=== PATIENT | female | born 1955 | race Caucasian/White ===

== ENCOUNTER 2023-08-30 10:18 | Observation (INO) ==
[~2023-08-30 10:18] MED LIST: Naloxone 0.4 mg VIAL 0.4 mg/ml 1 ml VIAL IV PRN; Ondansetron 4 mg VIAL 2 MG/ML 2 ml VIAL IV PRN; fentaNYL 100 mcg/2 ml 50 MCG/ML VIAL IV PRN
[2023-08-30] MEDS ORDERED: Chlorhexidine MOUTHWASH 0.12% 15 ML UDC ONE (10:26)
[2023-08-30] MEDS ORDERED: Midazolam 2 mg/2 ml VIAL 1 mg/ml 2 ml VIAL (2 mg) ONE (10:40)
[2023-08-30] MEDS ORDERED: Lidocaine 2% PF 5 ML VIAL ONE (10:40)
[2023-08-30] MEDS ORDERED: fentaNYL 250 mcg/5 ml 50 MCG/ML 5 ml VIAL (250 MCG) ONE (10:40)
[2023-08-30] MEDS ORDERED: Propofol 10 MG/ML 20 ML BTL ONE (10:40)
[2023-08-30] MEDS ORDERED: Rocuronium 50 mg VIAL 10 mg/ml 5 ml VIAL (50 mg) ONE ×2 (10:41→12:41)
[2023-08-30] MEDS ORDERED: ceFAZolin 2 GM PREMIX 2 GM/50 ML BAG ONE (10:54)
[2023-08-30] MEDS: Lactated Ringers 1000 ml BAG 1,000 ML IV SCH ×2 (11:12→17:17)
[2023-08-30] MEDS: Buffered Lidocaine 1% SYRIN 1 ml INTRADERM ONE (11:12)
[2023-08-30] MEDS ORDERED: Lidocaine 1% w EPI 1:100,000 MDV 20 ML VIAL ONE (12:33)
[2023-08-30] MEDS ORDERED: ceFAZolin VIAL VIAL ONE (12:33)
[2023-08-30] MEDS ORDERED: Thrombin 5,000 UNITS(BOVINE) for Ultrasound Guided Pseudoaneursym ONE (12:33)
[2023-08-30] MEDS ORDERED: Gelfoam Sponge SIZE 100 SPONGE ONE (12:33)
[2023-08-30 13:21] LABS: Rapid COVID-19 Molecular Undetected (Undetected)
[2023-08-30] MEDS ORDERED: Ondansetron 4 mg VIAL 2 MG/ML 2 ml VIAL ONE (13:31)
[2023-08-30] MEDS ORDERED: Dexamethasone IV 4 MG/ML VIAL 1 ml VIAL ONE (13:31)
[2023-08-30] MEDS ORDERED: Phenylephrine IV 10 MG/ML 1 ml VIAL ONE (13:31)
[2023-08-30] MEDS ORDERED: Calcium Carb (TUMS) 500 mg CHEW TAB PO PRN (14:41)
[2023-08-30] MEDS ORDERED: Benzocaine/Menthol LOZ MT PRN (14:41)
[2023-08-30] MEDS ORDERED: Phenol 1.4% Throat Spray BTL MT PRN (14:41)
[2023-08-30] MEDS ORDERED: Dextran 70/Hypromellose Tears Eye Drops 15 ml BTL (for Artificials Tears) BOTH EYES PRN (14:41)
[2023-08-30] MEDS ORDERED: Senna TAB 8.6 mg TAB PO PRN (14:41)
[2023-08-30] MEDS ORDERED: Metoclopramide 5 MG/ML VIAL (10 mg) ONE (14:57)
[2023-08-30] MEDS: Metoclopramide 5 MG/ML VIAL (10 mg) IV PRN (14:59)
[2023-08-30] MEDS ORDERED: Morphine 4 MG/ML VIAL (1 ml) ONE (15:42)
[2023-08-30] MEDS: Morphine 2 MG/ML SYRINGE IV PRN (15:44)
[2023-08-30] MEDS: Scopolamine 1 mg/72hr PATCH TRANSDERM ONE (17:36)
[2023-08-30] MEDS: Ondansetron 4 mg VIAL 2 MG/ML 2 ml VIAL IV PRN (18:52)
== END 2023-08-31 10:40 | disposition home or self-care (01) ==
LOC: SSU 10:18 → OR 10:18
PROVIDERS: ADMIT Neurological Surgery; ATTEND Neurological Surgery